=== PATIENT | male | born 1990 | race Caucasian/White ===

== ENCOUNTER 2024-10-03 19:08 | Inpatient (IN) | payer OTHER, SELFPAY ==
[2024-10-03 12:15] VITALS: BP 157/82
[2024-10-03 12:32] LABS: % Basophils 0.6 % (0-2); % Eosinophils 6.3 % (0-6); % Immature Granulocytes 0.2 % (0-0.5); % Lymphocytes 33.4 % (20.5-51.1); % Monocytes 9.5 % (1.7-9.3); Absolute Eosinophils 0.3 10^3/uL (0-0.7); Absolute Lymphocytes 1.6 10^3/uL (1.2-3.4); Absolute Monocytes 0.4 10^3/uL (0.1-0.6); Absolute Neutrophils 2.3 10^3/uL (1.4-6.5); Hematocrit 45.1 % (39.0-52.0); Hemoglobin 15.4 g/dL (13.0-18.0); Mean Corp Hgb Conc. 34.1 g/dL (33.0-37.0); Mean Corpuscular Hgb 30.8 pg (27.0-31.0); Mean Corpuscular Volume 90.2 fL (80.0-94.0); Nucleated Red Blood Cells % 0 % (-); Platelet Count 251 10^3/uL (130-400); Red Cell Dist. Width 11.5 % (11.5-14.5); White Blood Cell Count 4.6 10^3/uL (4.8-10.8)
[2024-10-03 13:00] LABS: ALT (SGPT) 44 U/L (0-50); AST (SGOT) 39 U/L (17-59); Albumin 4.7 g/dl (3.5-5.0); Alkaline Phosphatase 72 U/L (38-126); Blood Urea Nitrogen 10 mg/dl (9-20); Calcium 9.6 mg/dl (8.4-10.2); Carbon Dioxide 29 mmol/L (22-30); Chloride 99 mmol/L (98-107); Glucose 109 mg/dl (70-99); Lipase 76 U/L (23-300); Potassium 4.6 mmol/L (3.5-5.1); Sodium 139 mmol/L (135-145); Total Bilirubin 0.3 mg/dl (0.2-1.3); Total Protein 7.8 g/dl (6.3-8.2); eGFR > 60.00
[2024-10-03 13:55] VITALS: BMI 25.7
[2024-10-03] MEDS: DILAUDID 1 MG IV (14:26)
[2024-10-03] MEDS: NSS 1000 IV ×2 (14:29→22:39)
[2024-10-03] MEDS: ZOFRAN 4 MG IV (14:33)
--- NOTE | 2024-10-03 15:23 | ED.GENMED ---
History of Present Illness
General
Chief Complaint: Abdominal Symptoms
Source: patient
Exam Limitations: none
Time Seen by Provider: 10/03/24 13:30
Nursing documentation reviewed up to this point in time: agreed with
History of Present Illness
History of Present Illness:
pt is a 34 y/o M with h/o crohn's disease in remission formerly on humira
Follow-up by GI at [facility]
Presents for left lower quadrant pain similar to his previous Crohn's flares with loose stools. He has had about 6 episodes a day for the last several days with an increase in the left lower quadrant pain. The pain is worse with movement. He is
not having any fever or chills, bloody diarrhea or vomiting. Patient has had C. difficile before and this does not feel like the same stool. He is not having profuse watery foul-smelling diarrhea. Patient has been stable off of his Humira for a
year. He was told by his GI doctor to come in for evaluation
Previously he has been treated with steroids for a flare
Past History
Past History
ED Past Medical History: Other (crohns)
ED Past Surgical History: Other (exp lapraoscopy)
Social History
Tobacco: Non-smoker
Alcohol: None
Drug: None
Personal: Single
Living: with family
Employment: Employed
Review of Systems
Review of Systems
Allergies reviewed?: Yes
All Other Systems: Not applicable
Phy Exam
Physical Exam
Physical Exam:
GENERAL: Alert , in no apparent distress
EYE: pupils equal and reactive
NECK: Supple
ENT: o/p clr, mmm.
CARDIAC: Regular rate and rhythm .
LUNGS: Clear breath sounds bilaterally, no acute respiratory distress, no wheezes/rales/rhonchi
ABDOMEN: Soft, MODERATE left lower quad tendenress, no r/g, no cvat, normal bowel sounds
NEUROLOGICAL: Alert and oriented, no focal neuro deficits
SKIN: Warm and dry, skin intact.
MUSCULOSKELETAL: No edema, well perfused.
PSYCH: Normal and appropriate interaction.
Course
Orders/Labs/Results
Orders:
Orders
10/03/24 Breakfast
Clear Liquid
At Your Request: Full Participation
10/03/24 12:19
C-Reactive Protein Urgent
Comment: ADD ON
Complete Blood Count/With Diff Urgent
Comprehensive Metabolic Panel Urgent
Erythrocyte Sed Rate Urgent
Comment: ADD ON
Lipase Urgent
10/03/24 13:49
CT Abd/Pel (IV only)-DH only Urgent
Comment:
Reason For Exam: severe LLQ pain, h/o crohns
C DIFF [C difficile Antigen & Toxins] Urgent
BERTHA Source: Feces/Stool
Specimen Description:
Norovirus by PCR Urgent
BERTHA Source: Feces/Stool
Specimen Description:
Stool Culture Urgent
BERTHA Source: Feces/Stool
Specimen Description:
0.9% Sodium Chloride 1000 ml [Nss] 1,000 ml IV BOLUS
HYDROmorphone [Dilaudid] 1 mg IV NOW STA
10/03/24 14:32
Ondansetron Injectable [Zofran] 4 mg .ROUTE .STK-MED ONE
Ondansetron Injectable [Zofran] 4 mg IV NOW STA
10/03/24 15:21
Urinalysis Reflex To Culture Urgent
Date Specimen was Collected: 10/03/24
Time Specimen was Collected: 15:21
10/03/24 15:39
HYDROmorphone [Dilaudid] 0.5 mg IV NOW STA
10/03/24 18:01
Ova & Parasites Giardia/Crypto AG [Giardia/Cryptosporidium Ag] Urgent
BERTHA Source: Feces/Stool
Specimen Description:
10/03/24 18:42
Admit/Transfer Patient As Directed
Co-Sign Provider:
Level of Care: Inpatient admission
Assign to:: Medical/Surgical
Physician / Group: Fatou
Diagnosis: Abd Pain, Diarrhea
Reason for Hospitalization: IVFs, stool studies, possible steroids
Expected length of stay greater than two midnights?: Yes
ELOS- Estimated Length of Stay in days: 3
I certify the patient meets the requirements for IP care: Yes
10/03/24 18:46
Calprotectin, Fecal [S] Urgent
PRN Pain Medication Management As Directed
May give lesser potent ordered pain med per pt: Yes
preference::
Protocol:: Medication orders for pain may be administered in a
manner that supports deferring to patient preference
when the pt is:
- Requesting an ordered lesser potent pain medication.
Least to most potent pain medications are defined
as: acetaminophen < NSAID < tramadol < opioids
(morphine, oxycodone, hydromorphone).
- Requesting a lesser dose of the same medication IF
ORDERED.
- Requesting a less intrusive route of administration
if both routes are prescribed by the provider (PO <
IV).
10/03/24 18:47
Code Status As Directed
Resuscitation Status: Full Code
10/03/24 18:49
Add On- LAB Urgent
Tests Added?: esr, crp
10/03/24 19:09
HYDROmorphone [Dilaudid] 0.25 mg IV Q3HPRN PRN
10/03/24 21:41
0.9% Sodium Chloride 1000 ml [Nss] 1,000 ml IV 80 mls/hr
Acetaminophen [Tylenol] 650 mg PO Q4HPRN PRN
Ondansetron Injectable [Zofran] 4 mg IV Q6HPRN PRN
10/03/24 21:41
GASTROINTESTINAL CONSULT Routine
Consulting Provider: Hugo Florez
Was physician already notified: Yes
Activity As Directed
Activity Level: Out of Bed-Early Mobility
With Assistance
I&O [Intake/ Output] As Directed
Frequency: q12h
Vital Signs As Directed
Frequency: Per unit guidelines
Weight As Directed
Frequency: Daily
DX Deep Vein Thrombosis Video Routine
10/03/24 22:00
Prazosin HCl [Minipress] 2 mg PO HS
Trazodone [Desyrel] 150 mg PO HS
10/04/24 08:00
Paroxetine [Paxil] 20 mg PO DAILY
Paroxetine [Paxil] 30 mg PO DAILY
lisdexamfetamine 30 mg PO DAILY
10/04/24 18:00
Enoxaparin Sodium [Lovenox] 40 mg SC QPM
Abnormal Lab Results
10/03/24
12:19
WBC 4.6 L 10^3/uL
(4.8-10.8)
Monocytes % 9.5 H %
(1.7-9.3)
Eosinophils % 6.3 H %
(0-6)
Glucose 109 H mg/dl
(70-99)
10/03/24 12:19
10/03/24 12:19
Vital Signs
Initial and Last Documented VS:
Initial Vital Signs
Temp Pulse Resp BP Pulse Ox
36.9 C 86 18 157/82 98
10/03/24 12:15 10/03/24 12:15 10/03/24 12:15 10/03/24 12:15 10/03/24 12:15
Last Documented Vital Signs
Temp Pulse Resp BP Pulse Ox
36.7 C 66 19 138/91 98
10/03/24 21:51 10/03/24 21:51 10/03/24 21:51 10/03/24 21:51 10/03/24 21:51
MDM/Problems Addressed
Differential Diagnosis Includes:
colitis, crohn's disease
MDM/Problems Addressed:
34 y/o M h/o crohns in remission
here with LLQ pain and diarrhea
no fever, vomiting
pain is 8/10
no bloody stool
h/o previous c diff and this doesn't seem the same
afebrile, well appearing
mod tenderness
no rebound
wbc 4.6
electrolytes normal
ct shows a mild proctocolitis
pain improved from 8/10 to 6/10
still in pain
will reach out to [facility].
*174
dr from [facility] did not wish to give direct advice becuase he was not examinng the patient but was adamently recommending stool studies prior to initiating steroids and thought that if pain was enough to bring him to the ER, that he probably should
be admitted
pt canomt give stool
will admit
*Critical Care Note
Total Time (30-74mins, 75-104mins- exclusive of procedures): Not Applicable
ED Attending Note
-
Portions of this chart may have been created with voice recognition software.� Occasional wrong word or��sound alike� substitutions may have occurred due to the inherent limitations of voice recognition software.
Discharge Plan
Departure
Patient Disposition: Admit
Date of Disposition: 10/03/24
Time of Disposition: 18:01
Admit to: Med/Surg
Presentation/result/management discussed w/ accepting MD/DO: Hospitalist
Condition: Fair
Covid-19: Not Applicable
Discharge Problem:
Colitis, Crohn's disease
Interventions
Interventions:
*Risk Screen - Suicide Last Done: 10/03/24 12:15
*General Assessment Last Done: 10/03/24 12:15
*Neglect/Abuse Screening Last Done: 10/03/24 12:15
ED- Fall Risk Assessment Last Done: 10/03/24 21:32
*ED COVID-19 Vaccine History Last Done: 10/03/24 12:15
*Nursing Disposition Last Done: 10/03/24 21:32
TJ-Gnpxsf-Ongvefzpeb Assessment Last Done: 10/03/24 13:16
Discharge Date and Time
Discharge Date/Time: 10/03/24 21:20
[2024-10-03 15:29] LABS: Urine Albumin Negative (Neg - Trace); Urine Bilirubin Negative (Negative); Urine Character Clear (Clear); Urine Color Yellow; Urine Glucose Negative (Negative); Urine Ketone Negative (Negative); Urine Leukocyte Negative (Negative); Urine Nitrite Negative (Negative); Urine Occult Blood Negative (Negative); Urine Urobilinogen Negative (Neg - 1+)
[2024-10-03] MEDS: DILAUDID 0.5 MG IV (15:43)
[2024-10-03 15:49] VITALS: BP 128/92
--- NOTE | 2024-10-03 18:39 | HPS.HSE ---
Family Physician
-
Family Physician: NOT KNOW UNKNOWN - PT DOES
Chief Complaint
-
Abdominal Pain and Diarrhea
History of Present Illness
Patient is a 34 y/o male past medical history of Crohn's Disease who presents with abdominal pain and diarrhea. Patient reports symptoms started about 4 days. He describes pain mostly on the left side of the abdomen. He reports non-bloody diarrhea
with four episodes this morning. He denies fevers, sweats or chills. He denies recent antibiotics, travel or sick contacts with similar symptoms. He reports symptoms are similar to prior Crohn's flare. He states he has not been on any medication
of his Crohn's disease for about 2 years. He notes his last endoscopy and colonoscopy where about a year ago without evidence of active disease.
Medical History
Past Medical History
Past Medical History: Reports Other
Additional Past Medical History:
Crohn's Disease
Anxiety/Depression
Past Surgical History: Reports Other
Additional Past Surgical History:
Endoscopy / Colonoscopy
Exploratory Laparoscopy
Social History
Tobacco: Other (Stopped vaping a few months ago - Currently wearing nicotine patch)
Family History
Family History: Not pertinent
Allergies / Home Medications
Allergies reflects when Allergies were last updated in [facility]..
Home Medications with original date entered in [facility].
Allergy/Medication List:
Allergies
Allergy/AdvReac Type Severity Reaction Status Date / Time
No Known Allergies Allergy Verified 10/03/24 12:16
Home Medications
lisdexamfetamine 30 mg capsule 30 mg PO DAILY 10/03/24
paroxetine HCl 10 mg tablet 10 mg PO DAILY 10/03/24
paroxetine HCl 40 mg tablet 40 mg PO DAILY 10/03/24
prazosin 2 mg capsule 2 mg PO HS 10/03/24
propranolol 10 mg tablet 10 mg PO HSPRN PRN anxiety 10/03/24
trazodone 150 mg tablet 150 mg PO HS 10/03/24
Review of Systems
-
A 12 point ROS was completed and negative except as noted: Yes
Constitutional: Denies Fever or Chills
Respiratory: Denies Cough or Trouble Breathing
Cardiac: Denies Chest Pain or Palpitations
Physical Exam
Vital Signs
Vital Signs
Temp Pulse Resp BP Pulse Ox
98.4 F 72 18 128/92 98
10/03/24 15:49 10/03/24 15:49 10/03/24 15:49 10/03/24 15:49 10/03/24 15:49
Physical Exam
General: Comfortable and Conversant
HEENT: Anicteric and Moist mucous membranes
Respiratory: Clear and Non Labored Respirations
Cardiac: S1/S2 and Regular Rhythm
GI: Soft and Tender (Left abdomen without rebound or guarding)
Rectal: Deferred by Provider
Musculoskeletal: No Clubbing, No Cyanosis and No Edema
Skin: Warm and Dry
Neuro: Awake, Alert, Oriented and Nonfocal/grossly intact
Psych: Calm
Laboratory Results
-
10/03/24 12:19
10/03/24 12:19
Laboratory Results
Total Bilirubin 0.3 mg/dl (0.2-1.3) 10/03/24 12:19
AST 39 U/L (17-59) 10/03/24 12:19
ALT 44 U/L (0-50) 10/03/24 12:19
Alkaline Phosphatase 72 U/L (38-126) 10/03/24 12:19
Lipase 76 U/L (23-300) 10/03/24 12:19
CT scan:
Discontinuous mild wall thickening and mucosal hyperenhancement within the sigmoid colon and rectum which is favored to represent mild proctocolitis.
Data Reviewed
-
CT Scan: Report Reviewed by me
Lab Data: Labs Reviewed by me
Impression/Plan
-
Abdominal Pain with Diarrhea, suspect Crohn's Flare
-Consult GI
-Allow clear liquids
-Check stool cultures, C Diff, and Norovirus
-Check ESR/CRP
-Check fecal calprotectin
-Hold on antibiotics and steroids pending stool studies
Anxiety/Depression
-Continue Paxil and Trazodone
DVT proph: Lovenox
Code Status: Full Code
--- NOTE | 2024-10-03 18:58 | W.PN.UPDATE ---
Update Note
Progress Note Update
This is an addendum to the H&P written by Trsih Parker on 10/03/2024. Patient seen and examined independently with PA.
34-year-old male past medical history of Crohn's disease diagnosed in 2019 in remission formally on Humira follows at [place], multiple prior C. difficile, presenting with left lower quadrant abdominal pain and diarrhea similar to prior Crohn's flares.
CT abdomen pelvis shows discontinuous mild wall thickening and mucosal hyperenhancement within sigmoid colon and rectum consistent with mild proctocolitis.
Presentation consistent with acute Crohn's flare. Clear liquid diet, stool studies pending, GI consulted
[2024-10-03 19:19] LABS: Erythrocyte Sed Rate 10 mm/hour (0-20)
[2024-10-03] MEDS: DILAUDID 0.25 MG IV ×2 (19:40→22:40)
[2024-10-03 21:51] VITALS: BP 138/91; BMI 26.1
[2024-10-03] MEDS: MINIPRESS 2 MG PO (22:39)
[2024-10-03] MEDS: DESYREL 75 MG PO (23:01)
[2024-10-03 23:19] VITALS: BP 132/94
[2024-10-04] MEDS: DILAUDID 0.5 MG IV ×7 (00:46→23:34)
--- NOTE | 2024-10-04 01:47 | PTCARENOTE ---
Patient arrived from the ED via stretcher at approximately 2145. Patient ambulated from stretcher to bed w/ no assist - gait steady. Patient AAOx3. VSS as documented. Assessment as documented. Patient oriented to room. Bed in lowest position. Call
valdez within reach.
[2024-10-04 06:00] VITALS: BMI 25.8
[2024-10-04 07:15] VITALS: BP 95/57
[2024-10-04] MEDS: PAXIL 30 MG PO (08:01)
[2024-10-04] MEDS: PAXIL 20 MG PO (08:01)
[2024-10-04] MEDS: NICODERM TRANSDERMAL 7 MG TRANSDERM (08:01)
--- NOTE | 2024-10-04 09:31 | CON.GI ---
Addendum entered and electronically signed by BORIS Rg 10/04/24 14:28:
pt updated on tentative plan for flex in AM
Addendum entered and electronically signed by Hugo Florez DO 10/04/24 13:41:
I saw and examined the patient.
The ULTIMATE [employer] SCOREBOARD OPERATOR's note was reviewed and I agree with the note.
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
EGD/Colon 08/2023, previously on Humira in [id number]) who presented to the ED with lower abdominal pain and non-bloody, watery diarrhea. Labs grossly normal including nml inflammatory markers with ESR/CRP. CT imaging 10/03 revealing discontinuous
mild wall thickening and mucosal hyperenhancement within the sigmoid colon and rectum favored to represent mild proctocolitis. Doubt C Diff colitis as without any leukocytosis and further without recurrent episodes since his FMT and states his
symptoms are more consistent with his previous Crohn's flare. Suspect recurrent CD as patient has remained off therapy for nearly 1.5 years although was previously in remission back on 08/2023 during prior bi-directional endoscopy (no records of
this). Would still send infectious stool studies and r/o C Diff. Doubt CMV colitis as without any bloody stools or recent immunosuppressant therapy. As without any prior endoscopic records, patient would benefit from a limited flex-sig given concern
for CD recurrence to serve as objective evidence along with ruling out other etiologies (ie C Diff and CMV). Ultimately, if this is recurrent CD he would benefit from close outpatient follow-up with his primary GI / IBD physician at [facility] (Dr. Goldman
Lisa) to reconsider restarting Humira versus alternative biologic therapy (ie Skyrizi, Stelara, etc).
Recommendations:
- Okay for CLD, keep NPO at [place]
- Obtain stool studies as below- C Diff, stool culture, stool O&P
- Trend serial ESR/CRP q 48 hrs while inpatient
- Plan for Flex-Sig tomorrow, 10/05, for further evaluation given concern for recurrent CD
- Would not start IV Methylpred or oral steroids until Flex-sig has been performed to document disease and extent of disease activity
- Avoidance of all NSAIDs and opioids
- Ensure chemical VTE ppx while inpatient given high-risk for VTE in hospitalized patients with IBD
- Will attempt to obtain OSH records regarding patient's prior IBD care (f/w Dr Susi Gonzalez)
- Rest of care as outlined below
Discussed with primary internal medicine team. GI will continue to follow. Please call for any questions or concerns regarding this patient.
Original Note:
Consultation
-
Date/Time Consultation Requested: 10/03/242140
Date/Time Consultation Performed: 10/04/24 09
Requesting Provider: Trish Blankenship PA-C
Performing Provider: BORIS Pino, Hugo Florez DO
Reason for Consultation: hx crohns disease eval for flare
Medical History
Chief Complaint / HPI
Chief Complaint: abdominal pain and diarrhea
History of Present Illness:
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 Ct on admission with concern for discontinuous mild
wall thickening and mucosal hyperenhancement within the sigmoid colon and rectum which is favored to represent mild proctocolitis. Labs with normal hbg 15.4, CRP 8.8, ESR 10. Pt states he has history of GI issue for many years. He has exp lap
around 2018 which he recalls as normal and prior neg EGD/colon. He eventual had SB capsule with concern for crohns disease after pt had issue with continued weight loss and was started on Humira around 2019. He improved and stopped medication as
developed multiple infectious- resp and c-diff and was noted in remission. He has been off and stable since that time and now presents with onset of LLQ pain and diarrhea since last week. Patient rated pain as 6/10 now 3/10 with pain med use. He
denies issues with odynophagia, dysphagia, GERD, nausea, vomiting, or rectal bleeding. He admits to some current constipation since admission with pain med use. Last EGD/colon 08/2023 pt recalls as normal. Denies joint pain, visual problems or
rashes. No recent travel, abx or sick contacts.
Past Medical History
Past Medical History: Psychiatric (anxiety/depression) and Other (crohn's disease)
Past Surgical History: Other (exp lap )
Social History
Tobacco: Vaping (in past )
Alcohol: Occasional (2-3 drinks per week)
Drug: Marijuana
Personal:
Living: With Family
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
Family History
Family History: Other (2 Aunts with Ulcerative colitis )
Allergies / Home Medications
Allergy/AdvReac Type Severity Reaction Status Date / Time
No Known Allergies Allergy Verified 10/03/24 12:16
�Medication �Instructions �Recorded
lisdexamfetamine 30 mg capsule 30 mg PO DAILY Mental 10/03/24
Health/Anxiety
paroxetine HCl 10 mg tablet 10 mg PO DAILY Mental 10/03/24
Health/Anxiety
paroxetine HCl 40 mg tablet 40 mg PO DAILY Mental 10/03/24
Health/Anxiety
prazosin 2 mg capsule 2 mg PO HS Urinary Issue 10/03/24
propranolol 10 mg tablet 10 mg PO HSPRN PRN anxiety 10/03/24
trazodone 150 mg tablet 75 mg PO HS Mental Health/Anxiety 10/03/24
Review of Systems
-
History Source: Patient
Constitutional: Reports Weight Gain (wt down to 111 lbs in 2019 now 160's )
EENT: Reports No Symptoms
Respiratory: Reports No Symptoms
Cardiac: Reports No Symptoms
Abdomen/GI: Reports Abdominal Pain and Diarrhea
: Reports No Symptoms
Musculoskeletal: Reports No Symptoms
Skin: Reports No Symptoms
Neurological: Reports No Symptoms
Endocrine: Reports No Symptoms
Hematologic/Lymphatic: Reports No Symptoms
Vital Signs
Temp Pulse Resp BP Pulse Ox
98.1 F 64 16 132/94 98
10/03/24 23:19 10/03/24 23:19 10/03/24 23:19 10/03/24 23:19 10/03/24 23:19
Physical Exam
Exam
General: Well Developed, Well Nourished and No Apparent Distress
HEENT: Normocephalic and Anicteric
Respiratory: Clear
Cardiac: Regular Rhythm
GI: Soft, Non Distended and Tender (LLQ )
Musculoskeletal: No Clubbing and No Cyanosis
Skin: Warm and Dry
Neuro: Awake, Alert and AO x 3
Psych: Calm
Results
WBC 4.6 10^3/uL (4.8-10.8) L 10/03/24 12:19
Hgb 15.4 g/dL (13.0-18.0) 10/03/24 12:19
Hct 45.1 % (39.0-52.0) 10/03/24 12:19
MCV 90.2 fL (80.0-94.0) 10/03/24 12:19
Plt Count 251 10^3/uL (130-400) 10/03/24 12:19
Absolute Neuts (auto) 2.3 10^3/uL (1.4-6.5) 10/03/24 12:19
Sodium 139 mmol/L (135-145) 10/03/24 12:19
Potassium 4.6 mmol/L (3.5-5.1) 10/03/24 12:19
Chloride 99 mmol/L (98-107) 10/03/24 12:19
Carbon Dioxide 29 mmol/L (22-30) 10/03/24 12:19
BUN 10 mg/dl (9-20) 10/03/24 12:19
Creatinine 0.8 mg/dL (0.7-1.3) 10/03/24 12:19
Calcium 9.6 mg/dl (8.4-10.2) 10/03/24 12:19
Total Bilirubin 0.3 mg/dl (0.2-1.3) 10/03/24 12:19
AST 39 U/L (17-59) 10/03/24 12:19
ALT 44 U/L (0-50) 10/03/24 12:19
Alkaline Phosphatase 72 U/L (38-126) 10/03/24 12:19
Lipase 76 U/L (23-300) 10/03/24 12:19
Diagnostic Image Results:
10/03/24 CT Abd/Pel (IV only)-DH only
Discontinuous mild wall thickening and mucosal hyperenhancement within the sigmoid colon and rectum which is favored to represent mild proctocolitis.
10/26/23 CT Abd/pel W Iv And Oral Contr
There is no evidence of acute pathology in the abdomen or pelvis.
There are small bilateral renal cysts
Prior GI Procedures:
EGD:
last 08/2023 recalls as normal
Colonoscopy:
last 08/2023 recalls as normal
Assessment / Plan
-
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 Ct on admission with concern for discontinuous mild
wall thickening and mucosal hyperenhancement within the sigmoid colon and rectum which is favored to represent mild proctocolitis. Labs with normal hbg 15.4, CRP 8.8, ESR 10. Pt states he has history of GI issue for many years. He has exp lap
around 2018 which he recalls as normal and prior neg EGD/colon. He eventual had SB capsule with concern for crohns disease after pt had issue with continued weight loss and was started on Humira around 2019. He improved and stopped medication as
developed multiple infectious- resp and c-diff and was noted in remission. He has been off and stable since that time and now presents with onset of LLQ pain and diarrhea since last week.Pt follows with Dr. Susi Gonzalez at [facility].
-LLQ abdominal pain and diarrhea
-CT with discontinuous mild wall thickening and mucosal hyperenhancement within the sigmoid colon and rectum which is favored to represent mild proctocolitis
-hx crohns since 2019 ? Small bowel disease off Humira last 2 years with hx infections with use
-prior c-diff with recurrence and fecal transplant in past
-hx exp lap
-marijuana use
-anxiety/depression
PLAN:
etiology of symptoms related to crohns flare but ? prior Small bowel disease, vs infectious related with hx c-diff in past, vs other
await stools cultures to be sent
cont pain control
will request records from Dr. Susi Gonzalez -- pt follows with at [facility]
CRP and ESR stable
consider steroid course if c-diff neg
will follow
-
-
Thank you for consultation and allowing me to participate in the patient's care. Please call the livestock commission agent GI physician during the after hours with any questions or concerns.
[2024-10-04] MEDS: NSS 1000 IV ×2 (10:47→22:50)
[2024-10-04] MEDS: DILAUDID 0.25 MG IV (10:48)
[2024-10-04 11:15] VITALS: BP 127/83
--- NOTE | 2024-10-04 13:48 | CM ---
Patient seen at bedside with and physicians present. Patient stated that they have 13 stairs to apartment and he just started to see [facility] PCP. Patient uses the [facility] in [place] and states that he has no DME. Patient stated that he
plans on discharge home with no needs. CM will continue to follow for discharge planning needs.
Plan; home with no needs
--- NOTE | 2024-10-04 14:00 | W.PN.HOSP.TC ---
Addendum entered and electronically signed by Elli Walker MD 10/04/24 15:52:
I saw and evaluated the patient independently. I reviewed the resident�s note and agree with findings and plan as documented by Dr. Castellon.
GENERAL: well developed, well nourished, male in no apparent distress
HEENT: NC/AT
HEART: regular rate and rhythm, +S1, +S2
LUNGS : clear to auscultation bilaterally
ABDOM: soft, nontender, nondistended, + bowel sounds
EXT: no cyanosis, clubbing, or edema
NEUROLOGIC: grossly intact
Left lower quadrant abdominal pain and diarrhea -- likely secondary to Crohn's disease flare--unable to provide stool sample as now pt is constipated--not currently on maintenance therapy--got promotion at work with more stress likely cause of
flare--cannot rule out infection--check stool studies--hold on ABX--apprec GI, NPO post MN, flex sig tomorrow
Anxiety and depression---continue paroxetine prazosin, trazodone
ADHD--continue lisdexamfetamine, propranolol
insomnia--Uses cannabis Gummies to help fall asleep
DVT prophylaxis-Lovenox
CODE STATUS-full code
Original Note:
Today's Communication/Plan
-
N.p.o. after midnight
Flexible sigmoidoscopy tomorrow
Follow stool studies
Assessment / Plan
Assessment / Plan
Impression
Patient is a 34-year-old male with past medical history of Crohn's disease diagnosed in 2019, used Humira, discontinued it in 2022 and has been in remission for about a year and a half. 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 Meli Wright at
[facility]. He developed left lower quadrant pain that was gradual in onset, progressive, he could pinpoint the pain without any radiation. 7-8 in intensity with no aggravating or relieving factors. The pain was associated with loose bowel movements
but not watery stools, 4-5 in a day without any blood, melena. He denied any history of travel or dining out. He denied any weight loss or gain, fever, chills, chest pain, burning micturition, body aches or malaise.
Assessment/plan
1. Left lower quadrant abdominal pain and diarrhea secondary to Crohn's disease flare?
Patient was diagnosed with Crohn's disease at a young age that is associated with more severe form of disease
Was not on any kind of maintenance regimen
Could be a flareup of Crohn's, given his recent stress from getting promotion 4 months ago with increased workload
Could be an infectious colitis
Need to rule out the infectious causes with stool studies, test for norovirus and C. difficile
Once the patient has been ruled out for infectious causes, could start him on brief dose of steroids
GI consult appreciated
Dr. Florez plans to do flex sigmoidoscopy to document objective evidence of recurrence of Crohn's disease since he has been off therapy
N.p.o. at midnight
Plan flexible sigmoidoscopy tomorrow
Follow stool studies
Follow C. difficile and norovirus testing
Other medical issues
Anxiety and depression-continue paroxetine prazosin, trazodone
ADHD-continue lisdexamfetamine, propranolol
Underwent multiple endoscopies, colonoscopies and an exploratory laparoscopy to diagnose Crohn's disease
Uses cannabis Gummies to help fall asleep
Used to smoke but is currently using a nicotine patch from last 6 to 7 months
DVT prophylaxis-Lovenox
CODE STATUS-full code
Anticipated Discharge: 24 - 48 hours
Subjective/Interval History
-
Date of Service: October 04, 2024
Patient currently feels well, greatest pain at 3/10 after the pain medications and did not had a bowel movement today
Objective Data
-
Vital Signs:
Vital Signs
Temp Pulse Resp BP Pulse Ox
97.3 F 72 18 127/83 94
10/04/24 07:15 10/04/24 07:15 10/04/24 07:15 10/04/24 07:15 10/04/24 07:15
I&O
10/03/24 10/04/24 10/05/24
06:59 06:59 06:59
Intake Total 960 / 960
Balance 960 / 960
Review of Systems
-
All other systems: Reviewed and negative
Physical Exam
-
General: Well Developed, Well Nourished and No Apparent Distress
HEENT: Normocephalic and Atraumatic
Respiratory: Clear to Auscultation
Cardiac: Regular Rhythm and S1/S2
GI: Soft, Nontender and Normal Bowel Sounds
Musculoskeletal: No Clubbing, No Cyanosis and No Edema
Skin: Warm and Dry
Neuro: Awake, Alert and No Motor Deficits
Psych: Calm
[2024-10-04] MEDS: MIRALAX 17 GRAMS PO (14:08)
[2024-10-04 15:22] VITALS: BP 115/79
[2024-10-04] MEDS: LOVENOX 40 MG SC (16:55)
[2024-10-04] MEDS: DESYREL 75 MG PO (22:50)
[2024-10-04] MEDS: MINIPRESS 2 MG PO (22:54)
[2024-10-04 23:03] VITALS: BP 121/75
[2024-10-05 06:00] VITALS: BMI 25.7
[2024-10-05] MEDS: DILAUDID 0.5 MG IV ×2 (06:33→10:44)
--- NOTE | 2024-10-05 06:50 | W.PN.HOSP.TC ---
Addendum entered and electronically signed by Elli Walker MD 10/05/24 12:02:
I saw and evaluated the patient independently. I reviewed the resident�s note and agree with findings and plan as documented by Dr. Castellon.
GENERAL: well developed, well nourished, male in no apparent distress
HEENT: NC/AT
HEART: regular rate and rhythm, +S1, +S2
LUNGS : clear to auscultation bilaterally
ABDOM: soft, tender LLQ no guarding or rebound, nondistended, + bowel sounds
EXT: no cyanosis, clubbing, or edema
NEUROLOGIC: grossly intact
Left lower quadrant abdominal pain and diarrhea -- likely secondary to Crohn's disease flare--neg for C.diff and Norovirus-- pt is constipated--not currently on maintenance therapy--got promotion at work with more stress likely cause of flare--
stool culture pending--hold on ABX--apprec GI
Anxiety and depression---continue paroxetine prazosin, trazodone
ADHD--continue lisdexamfetamine, propranolol
insomnia--Uses cannabis Gummies to help fall asleep
DVT prophylaxis-Lovenox
CODE STATUS-full code
ok for d/c if pt moves bowels
Original Note:
Today's Communication/Plan
-
Discharge
Assessment / Plan
Assessment / Plan
Impression
Patient is a 34-year-old male with past medical history of Crohn's disease diagnosed in 2019, used Humira, discontinued it in 2022 and has been in remission for about a year and a half. 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 Meli Wrigth at
[facility]. He developed left lower quadrant pain that was gradual in onset, progressive, he could pinpoint the pain without any radiation. 7-8 in intensity with no aggravating or relieving factors. The pain was associated with loose bowel movements
but not watery stools, 4-5 in a day without any blood, melena. He denied any history of travel or dining out. He denied any weight loss or gain, fever, chills, chest pain, burning micturition, body aches or malaise.
Assessment/plan
1. Left lower quadrant abdominal pain and diarrhea secondary to Crohn's disease flare?
Patient was diagnosed with Crohn's disease at a young age that is associated with more severe form of disease
Was not on any kind of maintenance regimen
Could be a flareup of Crohn's, given his recent stress from getting promotion 4 months ago with increased workload
Could be an infectious colitis
Need to rule out the infectious causes with stool studies, test for norovirus and C. difficile
Once the patient has been ruled out for infectious causes, could start him on brief dose of steroids
GI consult appreciated
Patient declined flex.sigmoidoscopy,plans on following up at [facility],reportedly has scheduled colonoscopy in October.
Started on oral Prednisone 40 mg q daily due to suspected recurrent Crohn's disease as C Diff testing (-), can be tapered by his primary GI at [facility]
C. difficile and norovirus Negative
Stool cultures pending
Other medical issues
Anxiety and depression-continue paroxetine prazosin, trazodone
ADHD-continue lisdexamfetamine, propranolol
Underwent multiple endoscopies, colonoscopies and an exploratory laparoscopy to diagnose Crohn's disease
Insomnia-Uses cannabis Gummies to help fall asleep
Used to smoke but is currently using a nicotine patch from last 6 to 7 months
DVT prophylaxis-Lovenox
CODE STATUS-full code
Anticipated Discharge: 24 - 48 hours
Subjective/Interval History
-
Date of Service: October 05, 2024
No active issues currently feels well
Objective Data
-
Labs:
Laboratory Results
10/05/24
06:00
WBC Pending
Hgb Pending
Hct Pending
Plt Count Pending
Sodium Pending
Potassium Pending
Chloride Pending
Carbon Dioxide Pending
BUN Pending
Creatinine Pending
Glucose Pending
Calcium Pending
Vital Signs:
Vital Signs
Temp Pulse Resp BP Pulse Ox
98.5 F 81 16 121/75 95
10/04/24 23:03 10/04/24 23:03 10/04/24 23:03 10/04/24 23:03 10/04/24 23:03
I&O
10/03/24 10/04/24 10/05/24
06:59 06:59 06:59
Intake Total 960 / 960 3000 / 3000
Balance 960 / 960 3000 / 3000
Review of Systems
-
All other systems: Reviewed and negative
Physical Exam
-
General: Well Developed, Well Nourished, No Apparent Distress and Comfortable
HEENT: Normocephalic and Atraumatic
Respiratory: Clear to Auscultation
Cardiac: Regular Rhythm and S1/S2
GI: Soft, Nontender, Nondistended and Normal Bowel Sounds
Musculoskeletal: No Clubbing, No Cyanosis and No Edema
Neuro: Awake, Alert and Nonfocal/Grossly Intact
Psych: Calm and Other (and cooperative)
[2024-10-05 07:35] VITALS: BP 115/56
[2024-10-05 07:38] LABS: % Basophils 0.4 % (0-2); % Eosinophils 4.8 % (0-6); % Immature Granulocytes 0.3 % (0-0.5); % Monocytes 9.2 % (1.7-9.3); % Neutrophils 60.3 % (42.2-75.2); Absolute Eosinophils 0.4 10^3/uL (0-0.7); Absolute Lymphocytes 1.8 10^3/uL (1.2-3.4); Absolute Monocytes 0.7 10^3/uL (0.1-0.6); Absolute Neutrophils 4.4 10^3/uL (1.4-6.5); Hematocrit 39.9 % (39.0-52.0); Hemoglobin 13.9 g/dL (13.0-18.0); Mean Corp Hgb Conc. 34.8 g/dL (33.0-37.0); Mean Corpuscular Hgb 31.6 pg (27.0-31.0); Mean Corpuscular Volume 90.7 fL (80.0-94.0); Mean Platelet Volume 9.2 fL (7.4-10.4); Nucleated Red Blood Cells % 0 % (-); Platelet Count 209 10^3/uL (130-400); Red Cell Dist. Width 11.4 % (11.5-14.5); White Blood Cell Count 7.4 10^3/uL (4.8-10.8)
[2024-10-05 07:55] LABS: Blood Urea Nitrogen 10 mg/dl (9-20); Calcium 8.6 mg/dl (8.4-10.2); Carbon Dioxide 25 mmol/L (22-30); Chloride 102 mmol/L (98-107); Estimated Creatinine Clearance > 125 ml/min; Glucose 100 mg/dl (70-99); Magnesium 2.2 mg/dl (1.6-2.3); Potassium 3.8 mmol/L (3.5-5.1); Sodium 137 mmol/L (135-145); eGFR > 60.00
[2024-10-05] MEDS: NON-FORMULARY ITEM PO (07:57)
[2024-10-05] MEDS: NON-FORMULARY ITEM 30 MG PO (07:57)
[2024-10-05] MEDS: MIRALAX 17 GRAMS PO (07:58)
[2024-10-05] MEDS: PAXIL 20 MG PO (07:59)
[2024-10-05] MEDS: PAXIL 30 MG PO (07:59)
[2024-10-05] MEDS: NICODERM TRANSDERMAL 7 MG TRANSDERM (07:59)
[2024-10-05] MEDS: DELTASONE 40 MG PO (07:59)
--- NOTE | 2024-10-05 08:22 | W.PN.GI.CBS2 ---
Today's Communication / Plan
-
Declines flex-sig, C Diff (-) and favor starting oral prednisone today due to suspected recurrent Crohn's disease. May start low-fiber, low-residue diet and if tolerating may be discharged later today from GI standpoint. Discussed importance of
close outpatient f/u with his primary Vtc Technician at [facility] as he reportedly has an upcoming colonoscopy in the next few weeks. See rest of care as outlined below. GI will sign-off. Please call back with any questions or concerns.
Assessment / Plan
-
#Suspected, Recurrent Crohn's Disease
#Abnormal CT Imaging with Mild Proctocolitis
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
EGD/Colon 08/2023, previously on Humira in [id number]) who presented to the ED with lower abdominal pain and non-bloody, watery diarrhea. Labs grossly normal including nml inflammatory markers with ESR/CRP. CT imaging 10/03 revealing discontinuous
mild wall thickening and mucosal hyperenhancement within the sigmoid colon and rectum favored to represent mild proctocolitis. Doubt C Diff colitis as without any leukocytosis and further without recurrent episodes since his FMT and states his
symptoms are more consistent with his previous Crohn's flare. Suspect recurrent CD as patient has remained off therapy for nearly 1.5 years although was previously in remission back on 08/2023 during prior bi-directional endoscopy (no records of
this). Would still send infectious stool studies and r/o C Diff. Doubt CMV colitis as without any bloody stools or recent immunosuppressant therapy. As without any prior endoscopic records, patient would benefit from a limited flex-sig given concern
for CD recurrence to serve as objective evidence along with ruling out other etiologies (ie C Diff and CMV). Ultimately, if this is recurrent CD he would benefit from close outpatient follow-up with his primary GI / IBD physician at [facility] (Dr. Goldman
Lisa) to reconsider restarting Humira versus alternative biologic therapy (ie Skyrizi, Stelara, etc).
C Diff (-) pending rest of infectious stool studies. Clinically he appears to be improving however seems most consistent with recurrent Crohn's disease. Offered limited flex-sig to evaluate rectum/colon given thickening on CT scan to further assess
disease activity and obtain objective evidence of recurrence as patient was previously in remission during a prior ileocolonoscopy. However, prefers to forgo this despite long discussion this AM and plans on following up with his primary GI / IBD
team at [facility]. Otherwise, still without any diarrhea or abdominal pain and would start empiric oral steroids and discussed importance of close outpatient follow-up.
Recommendations:
- Start low-fiber, low-residue diet today
- Await rest of infectious stool studies, C Diff (-)
- No indication for starting IV steroids given his symptoms and reassuring inflammatory markers
- Favor pursuing flex-sig to assess for recurrence and strongly advised this, however patient declining despite extensive conversation this AM
- Will treat with oral Prednisone 40 mg q daily due to suspected recurrent Crohn's disease as C Diff testing (-), can be tapered by his primary GI at [facility]
- If tolerating solid food this AM/afternoon, can be discharged with close outpatient follow-up. He reportedly has an upcoming colonoscopy in October as well at [facility]
- Avoidance of all NSAIDs and opioids
- Chemical VTE ppx while inpatient
- Rest of care per primary team
Discussed with primary internal medicine team. GI will sign-off. Please call back with any questions or concerns.
Subjective
Subjective
Date of Service: October 05, 2024
- No acute events overnight
Feeling well this morning with improved abdominal pain. Had one formed BM yesterday on 10/04. Denies any diarrhea or bloody stools. Discussed pursuing potential flex-sig today to reassess disease activity along with obtaining objective evidence
given concern for recurrent CD as he was previously in remission / quiescent disease. Plans on following at [facility] and will have a colonoscopy there. Discussed importance of close outpatient follow-up. Otherwise, no other nausea/vomiting or other
fevers/chills or constitutional symptoms.
Objective
Data Reviewed
Laboratory Data:
Laboratory Results
10/05/24 06:55
10/05/24 06:55
Laboratory Results
Magnesium 2.2 mg/dl (1.6-2.3) 10/05/24 06:55
Total Bilirubin 0.3 mg/dl (0.2-1.3) 10/03/24 12:19
AST 39 U/L (17-59) 10/03/24 12:19
ALT 44 U/L (0-50) 10/03/24 12:19
Alkaline Phosphatase 72 U/L (38-126) 10/03/24 12:19
Lipase 76 U/L (23-300) 10/03/24 12:19
Vital Signs and I&O:
Vital Signs
Temp Pulse Resp BP Pulse Ox
98.5 F 81 16 121/75 95
10/04/24 23:03 10/04/24 23:03 10/04/24 23:03 10/04/24 23:03 10/04/24 23:03
I&O
10/04/24 10/05/24 10/06/24
06:59 06:59 06:59
Intake Total 960 / 960 3000 / 3000
Balance 960 / 960 3000 / 3000
Physical Exam
Physical Exam
HEENT: Anicteric and Moist mucous membranes
Cardiology: Normal Sinus Rhythm
Pulmonary: Other (Normal WOB on room air)
GI: Soft, Non Distended and Non Tender
Extremities: No Edema
Neuro: Non Focal
[2024-10-05 08:24] VITALS: BP 115/56
[2024-10-05] MEDS: CITROMA 300 ML PO (10:44)
--- NOTE | 2024-10-05 11:49 | W.DCSUMMARY ---
Addendum entered and electronically signed by Elli Walker MD 10/05/24 15:24:
Read, reviewed, and agree. See same day progress note for additional details. Time spent coordinating care, DC planning, review of DC plan of care with resident, transition of care, review of records in EMR, med rec, consults, notes, d/w
consultants, nursing, family, and CM = 20 minutes
Original Note:
Discharge Summary
Discharge Data
Date of Admission: 10/03/24
Date of Discharge: 10/05/24
-
Pending Results: No
Hospital Course
Discharging Physician :
Elli Walker,Daly Castellon
Disposition :
Home with routine care
Primary care physician :
Unknown
Principal Discharge diagnosis :
Recurrence of Crohn's disease
Chronic Discharge diagnosis :
Anxiety and depression
ADHD
Insomnia
Hospital Course :
Patient is a 34-year-old male with past medical history of recurrent C. difficile, marijuana use, prior exploratory laparoscopy and previously quiescent Crohn's disease, used Humira in 2019, discontinued in 2022 and has been in remission during
prior EGD/colon done on August 28, 2023.
He presented to the emergency with lower abdominal pain and nonbloody watery diarrhea labs grossly normal including normal inflammatory markers with ESR/CRP. Today CT imaging revealed discontinuous mild wall thickening and mucosal hyperenhancement
in the sigmoid colon and rectum that was favorable with mild proctocolitis.
Patient was evaluated by gastroenterology who suggested that since the patient had been off therapy for nearly 1.5 years he would need at least a flexible sigmoidoscopy documented recurrence of Crohn's disease which the patient refused and decided
to do the testing to rule out infectious colitis. His C. difficile and norovirus came back negative. He was started on prednisone 40 mg which would be eventually tapered by his primary driver license technician Dr. Meli Wright.
Patient tolerated low residue diet and decided to follow-up on outpatient basis with primary driver license technician.
He has an upcoming colonoscopy in October at [facility].
Important imaging findings :
CT abdomen/pelvis 10/03/2024
IMPRESSION:
Discontinuous mild wall thickening and mucosal hyperenhancement within the sigmoid colon and rectum which is favored to represent mild proctocolitis.
Discharge Plan
-
Patient Disposition: Home (Routine Discharge)
Discharge Diagnosis/Procedures: Recurrence of Crohn's disease/mild proctocolitis
Condition: Fair
Diet: As tolerated
Activity: As tolerated
Driving Restrictions: As prior to admission
Bathing Restrictions: OK to Shower
Referrals:
UNKNOWN - PT DOES,NOT KNOW [Family Provider] - in less than 1 week
Prescriptions:
New
prednisone 20 mg Tablet
40 mg PO DAILY 7 Days Qty: 14 0RF
Continued
paroxetine HCl 10 mg Tablet
10 mg PO DAILY
Rx Instructions:
take with 40mg for total of 50mg
propranolol 10 mg Tablet
10 mg PO HSPRN PRN (Reason: anxiety)
trazodone 150 mg Tablet
75 mg PO HS
paroxetine HCl 40 mg Tablet
40 mg PO DAILY
Rx Instructions:
take with 10mg for total of 50mg
prazosin 2 mg Capsule
2 mg PO HS
lisdexamfetamine 30 mg Capsule
30 mg PO DAILY
Discharge Orders:
Discharge Patient (As Directed); Ordered 10/05/24
Ordered By: Daly Castellon
Discharge Date and Time
Print Language: [id number]
--- NOTE | 2024-10-05 12:02 | CM ---
Patient seen at bedside.
Oral steroids
Discharge today.
No needs
PLAN: Home, no needs
to transport
[2024-10-05] MEDS: AFLURIA (36 mos+) 2024-2025 FORMULA 0.5 ML IM (12:48)
[2024-10-05 13:25] VITALS: BP 128/88
[2024-10-05 13:33] VITALS: BP 128/88
[2024-10-05] MEDS: DILAUDID 0.25 MG IV (13:53)
== END 2024-10-05 14:04 | disposition home or self-care (01) | DRG 387 ==
LOC: 2 NORTH 19:08
PROVIDERS: Emergency Medicine; Physician Assistant; ADMITTING PHYSICIAN Hospitalist; ATTENDING PHYSICIAN Internal Medicine; CONSULT PHYSICIAN Student in an Organized Health Care Education/Training Program; EMERGENCY PHYSICIAN Emergency Medicine
DX: K50.90 Crohn's disease, unspecified, without complications (principal); F32.A Depression, unspecified; F41.9 Anxiety disorder, unspecified; F90.9 Attention-deficit hyperactivity disorder, unspecified type; F12.90 Cannabis use, unspecified, uncomplicated; K50.10 Crohn's disease of large intestine without complications; K59.00 Constipation, unspecified
CPT/HCPCS: 74177; 80048; 80053; 81003; 83690; 83735; 85025; 85652; 86140; 87045; 87046; 87324; 87427; 87449; 87798; 90686; 96361; 96374; 96375; 99285; G0008; Q9967